=== PATIENT | male | born 1990 | race Caucasian/White ===

== ENCOUNTER 2020-10-07 20:27 | Emergency (ER) | payer OTHER, SELFPAY ==
[2020-10-07 20:28] VITALS: BP 115/82; PULSE 137; RESP 16; TEMP 36.8; O2SAT 98; BMI 24.4
[2020-10-07 20:44] VITALS: BP 115/82; PULSE 143; RESP 22; O2SAT 94
--- NOTE | 2020-10-07 20:55 | ED.OVERDOSE ---
HPI - Overdose General Chief Complaint: ETOH/Substance Use Stated Complaint: od Time Seen by Provider: 10/07/20 20:54 Source: patient Mode of arrival: EMS Limitations: no limitations History of Present Illness HPI Narrative: Patient history of substance abuse on Suboxone her ran out of it yesterday had cocaine and today he shot 1 bag of heroin was in the car passed out [employer] came and gave him 4 mg of Narcan with good effect patient now at this time alert oriented saturating 98% at room air patient does have Narcan at home Related Data Allergies Allergy/AdvReac Type Severity Reaction Status Date / Time No Known Allergies Allergy Verified 10/07/20 20:30 Review of Systems Review of Systems: Yes all other systems are reviewed and are negative PMFSH Past Medical History Medical History No known health problems Social History Social History Advance Directives: No Advance Directives Information Provided: Yes Physical Exam Vital Signs: Vital Signs: Last Vital Signs Temp 98.2 F 10/07/20 20:28 Pulse 143 H 10/07/20 20:44 Resp 22 H 10/07/20 20:44 BP 115/82 10/07/20 20:44 Pulse Ox 94 10/07/20 20:44 Body Mass Index 24.4 Appearance: Alert. Oriented X3. No acute distress. Eyes: PERRLA, No Nystagmus ENT: Pharynx normal. Oral Mucosa moist Neck: Normal inspection. Neck supple. CVS: Normal heart rate and rhythm. Pulses normal. Respiratory: No respiratory distress. Equal air entry bilateral, no wheezing/rales/rhonchi Abdomen: Soft and nontender. Bowel sounds are present, no mass palpable, Skin: Skin warm and dry. Normal skin color. Normal skin turgor. Extremities: No lower extremity edema. No calf tenderness IVDA track oliva+ Neuro: Oriented X 3. No motor deficit. No sensory deficit.No cerebellar signs , cranial nerves II-XII intact MDM - Overdose MDM Narrative Medical decision making narrative: Patient with history of substance abuse as Narcan at home family is here to take him home will discharge patient advised go to detox Discharge Plan Discharge Clinical Impression: Accidental opiate poisoning Qualifiers: Encounter type: initial encounter Qualified Code(s): T40.601A - Poisoning by unspecified narcotics, accidental (unintentional), initial encounter Patient Disposition: Home, Self-Care Instructions: Opioid Use Disorder (ED) Additional Instructions: Do not use heroin if you need help please go to detox
== END 2020-10-07 21:10 | disposition home or self-care (01) ==
LOC: HO.ED 20:59
PROVIDERS: Emergency Provider Internal Medicine
DX: T40.1X1A Poisoning by heroin, accidental (unintentional), initial encounter (principal); F11.10 Opioid abuse, uncomplicated; Y92.810 Car as the place of occurrence of the external cause
CPT/HCPCS: 99284